=== PATIENT | male | born 1965 | race Two or more races ===

== ENCOUNTER 2017-06-06 17:46 | Emergency (ER) | payer SELFPAY | END 2017-06-06 20:39 | disposition home or self-care (01) | LOC: D.ER 17:46 | DX: S91.341A Puncture wound with foreign body, right foot, initial encounter (principal); W45.8XXA Other foreign body or object entering through skin, initial encounter; Y93.89 Activity, other specified; Y92.029 Unspecified place in mobile home as the place of occurrence of the external cause; E11.9 Type 2 diabetes mellitus without complications; I10 Essential (primary) hypertension ==